=== PATIENT | male | born 1965 | race Caucasian/White ===

== ENCOUNTER 2016-09-11 00:02 | Emergency (ER) | payer OTHER ==
--- NOTE | 2016-09-11 00:55 | ED NURSING NOTES ---
Clinical Report - Nurses [facility] [address] [place] [address] 09/11/2016 0:02 Patient: TRISTAN GENTILE TRIAGE Triage time 1203 AM. Chief Complaint: (CLEAR TO BOOK). Alert. No acute distress. --00:07 Kev Guzman R.N. 00:03 09/11/16. BP: 189/105. HR: 109. RR: 16. O2 saturation: 93%. Temp: 98.6 F (oral). Pain level now: 010. --00:07 Kev Guzman R.N. Weight: 95.2 kg stated. Height/Length: 74 inches Per Patient. BMI: 27. --00:04 Kev Guzman R.N. Medications None. --00:05 Kev Guzman R.N. Allergies No Known Drug Allergy. --00:05 Kev Guzman R.N. History Historian: patient. Arrived in police custody from home and accompanied by police. This started just prior to arrival. ( clear to book, alcohol intoxication). He has had a cough productive of yellow sputum (about 2 weeks). Treatment HRIS MANAGER: None. PAST MEDICAL HX: Immunizations: up-to-date. SOCIAL HX: Never smoker. Heavy alcohol use. History of drug use. (no). FALL RISK ASSESSMENT: Fall risk assessment completed. No fall risk identified. NUTRITIONAL RISK ASSESSMENT: The nutritional risk assessment revealed no deficiencies. FUNCTIONAL ASSESSMENT: Functional assessment: no impairments noted. LEARNING NEEDS ASSESSMENT: The learning needs assessment revealed no barriers. SKIN INTEGRITY ASSESSMENT: Skin integrity risk assessment completed. No skin integrity risk identified. --00:07 Kev Guzman R.N. PROBLEMS: Hypertension. --00:05 Kev Guzman R.N. ADDITIONAL SURGERIES: no known surgeries. Interventions ID band on patient. --00:07 Kev Guzman R.N. PHYSICAL ASSESSMENT Ambulatory to room. GENERAL / NEURO / PSYCH: Alert. Oriented X 4. Appears in no acute distress. HEENT: Pupils equal, round and reactive to light. No facial asymmetry noted. Mucous membranes are pink. RESPIRATORY: Respirations not labored. Chest nontender. Breath sounds within normal limits. CVS: Normal sinus rhythm noted. Capillary refill less than 2 seconds. Pulses within normal limits. GI / : Abdomen soft and nontender and normal bowel sounds. SKIN: Skin intact. Skin is warm and dry. Normal skin turgor. --00:07 Kev Guzman R.N. NURSING PROGRESS NOTES Reassurance given. --00:07 Kev Guzman R.N. Call light placed in reach. Side rails up x 1. --00:36 Kev Guzman R.N. 00:42 09/11/2016 Azithromycin PO 500 mg given. Allergies verified and confirmed 5 rights. --00:42 Kev Guzman R.N. DISPOSITION / DISCHARGE 00:42 09/11/16. BP: 162/91. HR: 100. RR: 16. O2 saturation: 100%. --00:42 Kev Guzman R.N. Departure time: 01:03. Condition at departure: stable. The goals identified in the patient's plan of care were met. No learning barriers present. Discharge instructions provided and reviewed with the patient (Police). Reviewed medication(s) side effects, precautions, dosing and course information. Prescription(s) given to the patient (Tristan verbalizes importance of finishing all prescribed antibiotics.). Reviewed need for increased fluid intake. Activity restrictions (rest) reviewed. Patient verbalized understanding. Written instructions provided in Bengali. Verbalized understanding (Police). ( Tristan verbalizes understanding of all d/c instructions. He has no questions and voices no concerns at this time.). The patient was discharged by the physician. He was discharged home and accompanied by a police escort. He left the Emergency Department ambulatory and via police department vehicle. Driving (police). JAIME COMA SCORE: [place] Coma Scale: 15- eyes open spontaneously (4); best verbal response- oriented x 4 (5); best motor response- obeys commands (6). --01:03 Salvador Williamson R.N. 01:01 09/11/16. BP: 153/98 (regular adult cuff) taken on the left arm, via an automated monitor, while lying. HR: 99 (normal rate). RR: 16 (regular, unlabored and normal). O2 saturation: 96% on room air. Temp: 98.7 F (oral). Pain level now: 0/10. --01:03 Salvador Williamson R.N. Locked/Released at 09/11/2016 1:04 by Salvador Williamson R.N.
--- NOTE | 2016-09-11 00:55 | ED CLINICAL REPORT ---
Clinical Report - Physicians/Mid Levels [facility] [address] [place] [address] 09/11/2016 0:02 Patient: JEREMY GENTILE Time Seen: 00:23; initial patient contact. Arrived- Came in police custody. Historian- patient. HISTORY OF PRESENT ILLNESS Chief Complaint: INTOXICATED. Symptoms started today. Substances abused: Alcohol. Last drink just prior to arrival. He is under influence in ED. No fever, chills, nausea, vomiting or diarrhea. The symptoms are described as moderate. No injuries noted. Similar symptoms previously: Many times. Recent medical care: Not recently seen/assessed. Additional history - The patient has had nasal congestion, a nasal discharge and sore throat and sinus pain. REVIEW OF SYSTEMS No sweats. He has had a sore throat and a headache and cough. All systems otherwise negative, except as recorded above. PAST HISTORY HTN. Additional Surgeries: no known surgeries. Medications: None. Allergies: No Known Drug Allergy. SOCIAL HISTORY Never smoker. Heavy alcohol use. No drug use. ADDITIONAL NOTES The nursing notes have been reviewed with agreement regarding the chief complaint, PMH and patient medications and allergies. PHYSICAL EXAM Vital Signs: 09/11/2016 00:03 BP: 189/105. HR: 109. RR: 16. O2 saturation: 93%. Temp: 98.6 F. Pain level now: 0/10. Have been reviewed. Hypertensive. Tachycardic. Respiratory rate normal. Temperature normal. Oxygen saturation low. Appearance: Alert. Oriented X3. No acute distress. ENT: Tenderness present to percussion/palpation of the sinuses: mild right and left frontal tenderness, ethmoid tenderness. Moderate generalized pharyngeal erythema with right tonsillar swelling and left tonsillar swelling. The mucous membranes are not dry. Neck: No lymphadenopathy. CVS: Normal heart rate and rhythm. Heart sounds normal. Respiratory: No respiratory distress. Breath sounds normal. Abdomen: Soft and nontender. No organomegaly. Skin: Skin warm and dry. Normal skin color. No rash. Normal skin turgor. Extremities: No lower extremity edema. Neuro: Alert. Oriented X 3. Mood/affect normal. Speech normal. PROGRESS AND PROCEDURES Disposition: Discharged home in good condition. Condition: good. CLINICAL IMPRESSION Uncomplicated alcohol intoxication. Acute ethmoidal and frontal sinusitis INSTRUCTIONS (CLEAR TO BOOK). Prescription Medications: Azithromycin 500 mg tablets: take 1 orally every day for 3 days. Total course 3 days. No refills. Flonase nasal spray: 2 sprays to each nostril daily. Dispense one (1) unit. No refills. Substitution is permissible Follow-up: Follow up with your doctor in about two days. Call for an appointment. Screening today revealed the patient's blood pressure to be in the hypertensive range. The patient should follow up with a primary care provider for blood pressure management. (Electronically signed by Karel Lee Dr. 09/11/2016 0:59) Gustavo GENTILE JEREMY VisitID: [id number] Date: 09/11/2016 09/11/2016 1:04 Azithromycin PO Response: no adverse reaction.I personally performed the procedure as documented. (Electronically signed by Salvador Williamson R.N. - 09/11/2016 1:04)
--- NOTE | 2016-09-11 00:55 | ED NURSING NOTES ---
Clinical Report - Nurses [facility] [address] [place] [address] 09/11/2016 0:02 Patient: TRISTAN GENTILE TRIAGE Triage time 1203 AM. Chief Complaint: (CLEAR TO BOOK). Alert. No acute distress. --00:07 Kev Guzman R.N. 00:03 09/11/16. BP: 189/105. HR: 109. RR: 16. O2 saturation: 93%. Temp: 98.6 F (oral). Pain level now: 010. --00:07 Kev Guzman R.N. Weight: 95.2 kg stated. Height/Length: 74 inches Per Patient. BMI: 27. --00:04 Kev Guzman R.N. Medications None. --00:05 Kev Guzman R.N. Allergies No Known Drug Allergy. --00:05 Kev Guzman R.N. History Historian: patient. Arrived in police custody from home and accompanied by police. This started just prior to arrival. ( clear to book, alcohol intoxication). He has had a cough productive of yellow sputum (about 2 weeks). Treatment [employer] [employer]MS: None. PAST MEDICAL HX: Immunizations: up-to-date. SOCIAL HX: Never smoker. Heavy alcohol use. History of drug use. (no). FALL RISK ASSESSMENT: Fall risk assessment completed. No fall risk identified. NUTRITIONAL RISK ASSESSMENT: The nutritional risk assessment revealed no deficiencies. FUNCTIONAL ASSESSMENT: Functional assessment: no impairments noted. LEARNING NEEDS ASSESSMENT: The learning needs assessment revealed no barriers. SKIN INTEGRITY ASSESSMENT: Skin integrity risk assessment completed. No skin integrity risk identified. --00:07 Kev Guzman R.N. PROBLEMS: Hypertension. --00:05 Kev Guzman R.N. ADDITIONAL SURGERIES: no known surgeries. Interventions ID band on patient. --00:07 Kev Guzman R.N. PHYSICAL ASSESSMENT Ambulatory to room. GENERAL / NEURO / PSYCH: Alert. Oriented X 4. Appears in no acute distress. HEENT: Pupils equal, round and reactive to light. No facial asymmetry noted. Mucous membranes are pink. RESPIRATORY: Respirations not labored. Chest nontender. Breath sounds within normal limits. CVS: Normal sinus rhythm noted. Capillary refill less than 2 seconds. Pulses within normal limits. GI / : Abdomen soft and nontender and normal bowel sounds. SKIN: Skin intact. Skin is warm and dry. Normal skin turgor. --00:07 Kev Guzman R.N. NURSING PROGRESS NOTES Reassurance given. --00:07 Kev Guzman R.N. Call light placed in reach. Side rails up x 1. --00:36 Kev Guzman R.N. 00:42 09/11/2016 Azithromycin PO 500 mg given. Allergies verified and confirmed 5 rights. --00:42 Kev Guzman R.N. DISPOSITION / DISCHARGE 00:42 09/11/16. BP: 162/91. HR: 100. RR: 16. O2 saturation: 100%. --00:42 Kev Guzman R.N. Departure time: 01:03. Condition at departure: stable. The goals identified in the patient's plan of care were met. No learning barriers present. Discharge instructions provided and reviewed with the patient (Police). Reviewed medication(s) side effects, precautions, dosing and course information. Prescription(s) given to the patient (Tristan verbalizes importance of finishing all prescribed antibiotics.). Reviewed need for increased fluid intake. Activity restrictions (rest) reviewed. Patient verbalized understanding. Written instructions provided in German. Verbalized understanding (Police). ( Tristan verbalizes understanding of all d/c instructions. He has no questions and voices no concerns at this time.). The patient was discharged by the physician. He was discharged home and accompanied by a police escort. He left the Emergency Department ambulatory and via police department vehicle. Driving (police). JAIME COMA SCORE: [place] Coma Scale: 15- eyes open spontaneously (4); best verbal response- oriented x 4 (5); best motor response- obeys commands (6). --01:03 Salvador Williamson R.N. 01:01 09/11/16. BP: 153/98 (regular adult cuff) taken on the left arm, via an automated monitor, while lying. HR: 99 (normal rate). RR: 16 (regular, unlabored and normal). O2 saturation: 96% on room air. Temp: 98.7 F (oral). Pain level now: 0/10. --01:03 Salvador Williamson R.N. Locked/Released at 09/11/2016 1:04 by Salvador Williamson R.N.
--- NOTE | 2016-09-11 00:55 | ED CLINICAL REPORT ---
Clinical Report - Physicians/Mid Levels [facility] [address] [place] [address] 09/11/2016 0:02 Patient: JEREMY GENTILE Time Seen: 00:23; initial patient contact. Arrived- Came in police custody. Historian- patient. HISTORY OF PRESENT ILLNESS Chief Complaint: INTOXICATED. Symptoms started today. Substances abused: Alcohol. Last drink just prior to arrival. He is under influence in ED. No fever, chills, nausea, vomiting or diarrhea. The symptoms are described as moderate. No injuries noted. Similar symptoms previously: Many times. Recent medical care: Not recently seen/assessed. Additional history - The patient has had nasal congestion, a nasal discharge and sore throat and sinus pain. REVIEW OF SYSTEMS No sweats. He has had a sore throat and a headache and cough. All systems otherwise negative, except as recorded above. PAST HISTORY HTN. Additional Surgeries: no known surgeries. Medications: None. Allergies: No Known Drug Allergy. SOCIAL HISTORY Never smoker. Heavy alcohol use. No drug use. ADDITIONAL NOTES The nursing notes have been reviewed with agreement regarding the chief complaint, PMH and patient medications and allergies. PHYSICAL EXAM Vital Signs: 09/11/2016 00:03 BP: 189/105. HR: 109. RR: 16. O2 saturation: 93%. Temp: 98.6 F. Pain level now: 0/10. Have been reviewed. Hypertensive. Tachycardic. Respiratory rate normal. Temperature normal. Oxygen saturation low. Appearance: Alert. Oriented X3. No acute distress. ENT: Tenderness present to percussion/palpation of the sinuses: mild right and left frontal tenderness, ethmoid tenderness. Moderate generalized pharyngeal erythema with right tonsillar swelling and left tonsillar swelling. The mucous membranes are not dry. Neck: No lymphadenopathy. CVS: Normal heart rate and rhythm. Heart sounds normal. Respiratory: No respiratory distress. Breath sounds normal. Abdomen: Soft and nontender. No organomegaly. Skin: Skin warm and dry. Normal skin color. No rash. Normal skin turgor. Extremities: No lower extremity edema. Neuro: Alert. Oriented X 3. Mood/affect normal. Speech normal. PROGRESS AND PROCEDURES Disposition: Discharged home in good condition. Condition: good. CLINICAL IMPRESSION Uncomplicated alcohol intoxication. Acute ethmoidal and frontal sinusitis INSTRUCTIONS (CLEAR TO BOOK). Prescription Medications: Azithromycin 500 mg tablets: take 1 orally every day for 3 days. Total course 3 days. No refills. Flonase nasal spray: 2 sprays to each nostril daily. Dispense one (1) unit. No refills. Substitution is permissible Follow-up: Follow up with your doctor in about two days. Call for an appointment. Screening today revealed the patient's blood pressure to be in the hypertensive range. The patient should follow up with a primary care provider for blood pressure management. (Electronically signed by Karel Lee Dr. 09/11/2016 0:59) Gustavo GENTILE JEREMY VisitID: [id number] Date: 09/11/2016 09/11/2016 1:04 Azithromycin PO Response: no adverse reaction.I personally performed the procedure as documented. (Electronically signed by Salvador Williamson R.N. - 09/11/2016 1:04)
--- NOTE | 2016-09-11 00:55 | ED ORDER SUMMARY ---
..... Patient: JEREMY GENTILE OrderSheet [facility] VisitID: [id number] [address] [place] [address] 51y, M Registration Date/Time: 09/11/2016 ORDER SHEET Weight: 95.2 kg (stated) Allergies: No Known Drug Allergy GENERAL ORDERS: MEDICATION ORDERS: Azithromycin PO 500 mg (NOW) (00:37 09/11/2016 Josemanuel Bird) (0:42 Asha Nair) IV FLUIDS: ORDER SHEET NOTES: [Electronically signed by Karel Lee Dr. (00:59 09/11/2016)] [Electronically signed by Salvador Williamson R.N. (01:04 09/11/2016)] [Electronically locked/signed by Salvador Williamson R.N. (01:04 09/11/2016)]
--- NOTE | 2016-09-11 00:55 | ED ORDER SUMMARY ---
..... Patient: JEREMY GENTILE OrderSheet [facility] VisitID: [id number] [address] [place] [address] 51y, M Registration Date/Time: 09/11/2016 ORDER SHEET Weight: 95.2 kg (stated) Allergies: No Known Drug Allergy GENERAL ORDERS: MEDICATION ORDERS: Azithromycin PO 500 mg (NOW) (00:37 09/11/2016 Josemanuel Bird) (0:42 Asha Nair) IV FLUIDS: ORDER SHEET NOTES: [Electronically signed by Karel Lee Dr. (00:59 09/11/2016)] [Electronically signed by Salvador Williamson R.N. (01:04 09/11/2016)] [Electronically locked/signed by Salvador Williamson R.N. (01:04 09/11/2016)]
--- NOTE | 2016-09-11 01:05 | ED DISCHARGE INSTRUCTIONS ---
Patient: JEREMY GENTILE General Instructions [facility] VisitID: [id number] [place] [address] 51y, M Registration Date/Time: 09/11/2016 Uncomplicated alcohol intoxication. Acute ethmoidal and frontal sinusitis INSTRUCTIONS (CLEAR TO BOOK). Prescription Medications: Azithromycin 500 mg tablets: take 1 orally every day for 3 days. Total course 3 days. No refills. Flonase nasal spray: 2 sprays to each nostril daily. Dispense one (1) unit. No refills. Substitution is permissible Follow-up: Follow up with your doctor in about two days. Call for an appointment. Screening today revealed the patient's blood pressure to be in the hypertensive range. The patient should follow up with a primary care provider for blood pressure management. ADDITIONAL INFORMATION Alcohol Intoxication Alcohol intoxication occurs when you drink alcohol faster than your liver can remove it from your system. Alcohol intoxication affects your judgment and coordination. Very high blood alcohol levels can cause coma, very slow breathing and even . If you drink alcohol every day, this may gradually cause permanent damage to your liver, brain, heart, pancreas and other organs. Alcohol use during may cause permanent damage to the growing baby. Home Care: Do not drink any more alcohol. DO NOT DRIVE until all effects of the alcohol have worn off. Get lots of rest over the next few days. Drink plenty of water and other non-alcoholic liquids. Try to eat regular meals. If you have been drinking heavily on a daily basis, you may go through alcohol withdrawl. This is also called the shakes or DTs. The usual symptoms last 3 to 4 days and may include nervousness, shakiness, nausea, sweating or sleeplessness. During this time, it is best that you stay with family or friends who can help and support you. You can also admit yourself to a residential detox program. If your symptoms are severe, contact your doctor for medicines to help. Follow Up: If alcohol is causing a problem in your life, these and other organizations can help you: Alcoholics Anonymous offers support through a self-help fellowship. There are no dues or fees. See the Yellow Pages and call for time and place of meetings. www.aa.org [employer] offers support to families of alcohol users. 791.833.5367 www.al-anon.org [employer] 964-280-7630 www.ncadd.org There are also inpatient or residential alcohol detox programs. Check the Internet or phonebook Yellow Pages under Drug Abuse & Treatment Centers. Get Prompt Medical Attention if any of the following occur: there) Sinusitis [Abx Tx] The sinuses are air-filled spaces within the bones of the face. They connect to the inside of the nose. Sinusitis is an inflammation of the tissue lining the sinus cavity. Sinus inflammation can occur during a cold or hay-fever (allergies to pollens and other particles in the air) and cause symptoms of sinus congestion and fullness. A sinus infection causes fever, headache and facial pain. There is usually green or yellow drainage from the nose or into the back of the throat (post-nasal drip). Antibiotics are prescribed to treat this condition. Home Care: Drink plenty of water, hot tea, and other liquids to stay well hydrated. This thins the mucus and promotes sinus drainage. Apply heat to the painful areas of the face. Use a towel soaked in hot water. Or, clinical technician the shower and direct the hot spray onto your face. This is a good way to inhale warm water vapor and get heat on your face at the same time. (Cover your mouth and nose with your hands so you can still breathe as you do this.) Use a vaporizer with products such as Vicks VapoRub (contains menthol) at night. Suck on peppermint, menthol or eucalyptus hard candies during the day. An expectorant containing guaifenesin (such as Robitussin), helps to thin the mucus and promote drainage from the sinuses. [id number]-hdo-[id number] decongestants may be used unless a similar medicine was prescribed. Nasal sprays work the fastest. Use one that contains phenylephrine (Marlon-synephrine, Sinex and others) or oxymetazoline (Afrin). First blow the nose gently to remove mucus, then apply the drops. Do not use these medicines more often than directed on the label or for more than three days or symptoms may worsen. You may also use tablets containing pseudoephedrine (Sudafed). Many sinus remedies combine ingredients, which may increase side effects. Read the labels or ask the pharmacist for help. NOTE: Persons with high blood pressure should not use decongestants. They can raise blood pressure. Antihistamines are useful if allergies are a cause of your sinusitis. The mildest one is chlorpheniramine (available without a prescription). The dose for adults is 8-12mg three times a day. [NOTE: Do not use chlorpheniramine if you have glaucoma or if you are a man with trouble urinating due to an enlarged prostate.] Claritin (loratidine) is an antihistamine that causes less drowsiness and is a good alternative for daytime use. Do not use nasal rinses or irrigation during an acute sinus infection, unless advised by your doctor. Rinsing may spread the infection to other sinuses. You may use acetaminophen (Tylenol) or ibuprofen (Motrin, Advil) to control pain, unless another pain medicine was prescribed. [ NOTE: If you have chronic liver or kidney disease or ever had a stomach ulcer, talk with your doctor before using these medicines.] (Aspirin should never be used in anyone under 18 years of age who is ill with a fever. It may cause severe liver damage.) Finish the full course, even if you are feeling better after a few days. Follow Up with your doctor or this facility in one week or as instructed by our staff if not improving. Get Prompt Medical Attention if any of the following occur: Facial pain or headache becomes more severe Stiff neck Unusual drowsiness or confusion, or not acting like your normal self Swelling of the forehead or eyelids Vision problems including blurred or double vision Fever of 100.4F (38C) or higher, or as directed by your healthcare provider Seizure Azithromycin Oral tablet What is this medicine? AZITHROMYCIN (az ith alondra MYE sin) is a macrolide antibiotic. It is used to treat or prevent certain kinds of bacterial infections. It will not work for colds, flu, or other viral infections. How should I use this medicine? Take this medicine by mouth with a full glass of water. Follow the directions on the prescription label. The tablets can be taken with food or on an empty stomach. If the medicine upsets your stomach, take it with food. Take your medicine at regular intervals. Do not take your medicine more often than directed. Take all of your medicine as directed even if you think your are better. Do not skip doses or stop your medicine early. Talk to your hedge fund trader regarding the use of this medicine in children. Special care may be needed. What side effects may I notice from receiving this medicine? Side effects that you should report to your doctor or health medicare biller as soon as possible: allergic reactions like skin rash, itching or hives, swelling of the face, lips, or tongue confusion, nightmares or hallucinations dark urine difficulty breathing hearing loss irregular heartbeat or chest pain pain or difficulty passing urine redness, blistering, peeling or loosening of the skin, including inside the mouth white patches or sores in the mouth yellowing of the eyes or skin Side effects that usually do not require medical attention (report to your doctor or health medicare biller if they continue or are bothersome): diarrhea dizziness, drowsiness headache stomach upset or vomiting tooth discoloration vaginal irritation What may interact with this medicine? Do not take this medicine with any of the following medications: lincomycin This medicine may also interact with the following medications: amiodarone antacids cyclosporine digoxin magnesium nelfinavir phenytoin warfarin What if I miss a dose? If you miss a dose, take it as soon as you can. If it is almost time for your next dose, take only that dose. Do not take double or extra doses. Where should I keep my medicine? Keep out of the reach of children. Store at room temperature between 15 and 30 degrees C (59 and 86 degrees F). Throw away any unused medicine after the expiration date. What should I tell my health care provider before I take this medicine? They need to know if you have any of these conditions: kidney disease liver disease irregular heartbeat or heart disease an unusual or allergic reaction to azithromycin, erythromycin, other macrolide antibiotics, foods, dyes, or preservatives or trying to get breast-feeding What should I watch for while using this medicine? Tell your doctor or health medicare biller if your symptoms do not improve. Do not treat diarrhea with over the counter products. Contact your doctor if you have diarrhea that lasts more than 2 days or if it is severe and watery. This medicine can make you more sensitive to the sun. Keep out of the sun. If you cannot avoid being in the sun, wear protective clothing and use sunscreen. Do not use sun lamps or tanning beds/booths. Fluticasone Propionate Nasal spray, solution What is this medicine? FLUTICASONE (floo TIK a sone) is a corticosteroid. It helps decrease inflammation in your nose. This medicine is used to treat the symptoms of allergies like sneezing, itching, and runny or stuffy nose. How should I use this medicine? This medicine is for use in the nose. Follow the directions on your prescription label. This medicine works best if used regularly. Do not use more often than directed. Make sure that you are using your nasal spray correctly. Ask you doctor or health care provider if you have any questions. Talk to your hedge fund trader regarding the use of this medicine in children. While this drug may be prescribed for children as young as 4 years old for selected conditions, precautions do apply. What side effects may I notice from receiving this medicine? Side effects that you should report to your doctor or health medicare biller as soon as possible: allergic reactions like skin rash, itching or hives, swelling of the face, lips, or tongue changes in vision flu-like symptoms white patches or sores in the mouth or nose Side effects that usually do not require medical attention (report to your doctor or health medicare biller if they continue or are bothersome): burning or irritation inside the nose or throat cough headache nosebleed unusual taste or smell What may interact with this medicine? ketoconazole metyrapone some medicines for HIV vaccines What if I miss a dose? If you miss a dose, use it as soon as you remember. If it is almost time for your next dose, use only that dose and continue with your regular schedule. Do not use double or extra doses. Where should I keep my medicine? Keep out of the reach of children. Store at room temperature between 15 and 30 degrees C (59 and 86 degrees F). Throw away any unused medicine after the expiration date. What should I tell my health care provider before I take this medicine? They need to know if you have any of these conditions: infection, like tuberculosis, herpes, or fungal infection recent surgery on nose or sinuses taking corticosteroid by mouth an unusual or allergic reaction to fluticasone, steroids, other medicines, foods, dyes, or preservatives or trying to get breast-feeding What should I watch for while using this medicine? Visit your doctor or health medicare biller for regular checks on your progress. Some symptoms may improve within 12 hours after starting use. Check with your doctor or health medicare biller if there is no improvement in your condition after 3 weeks of use. Do not come in contact with people who have chickenpox or the measles while you are taking this medicine. If you do, call your doctor right away. You have been given the following additional information: Alcohol Intoxication Sinusitis, Abx Tx Azithromycin Oral tablet Fluticasone Propionate Nasal spray, solution (Electronically signed by Karel Lee Dr. 09/11/2016 0:59)
--- NOTE | 2016-09-11 01:05 | ED MAR SUMMARY ---
..... Medication Administration Record [facility] [address] [place] [address] Patient: JEREMY GENTILE Visit ID: [id number] 51y, M Weight: 95.2 kg Height/Length: 74 in BMI: 27 ALLERGIES: No Known Drug Allergy Given 00:42 09/11/2016 Kev Guzman R.N. Medication Administered: AZITHROMYCIN [PO], Dose: 500 mg PO. Medication Ordered: Azithromycin PO 500 mg (NOW).
--- NOTE | 2016-09-11 01:05 | ED MAR SUMMARY ---
..... Medication Administration Record [facility] [address] [place] [address] Patient: JEREMY GENTILE Visit ID: [id number] 51y, M Weight: 95.2 kg Height/Length: 74 in BMI: 27 ALLERGIES: No Known Drug Allergy Given 00:42 09/11/2016 Kev Guzman R.N. Medication Administered: AZITHROMYCIN [PO], Dose: 500 mg PO. Medication Ordered: Azithromycin PO 500 mg (NOW).
--- NOTE | 2016-09-11 01:05 | ED DISCHARGE INSTRUCTIONS ---
Patient: JEREMY GENTILE General Instructions [facility] VisitID: [id number] [place] [address] 51y, M Registration Date/Time: 09/11/2016 Uncomplicated alcohol intoxication. Acute ethmoidal and frontal sinusitis INSTRUCTIONS (CLEAR TO BOOK). Prescription Medications: Azithromycin 500 mg tablets: take 1 orally every day for 3 days. Total course 3 days. No refills. Flonase nasal spray: 2 sprays to each nostril daily. Dispense one (1) unit. No refills. Substitution is permissible Follow-up: Follow up with your doctor in about two days. Call for an appointment. Screening today revealed the patient's blood pressure to be in the hypertensive range. The patient should follow up with a primary care provider for blood pressure management. ADDITIONAL INFORMATION Alcohol Intoxication Alcohol intoxication occurs when you drink alcohol faster than your liver can remove it from your system. Alcohol intoxication affects your judgment and coordination. Very high blood alcohol levels can cause coma, very slow breathing and even . If you drink alcohol every day, this may gradually cause permanent damage to your liver, brain, heart, pancreas and other organs. Alcohol use during may cause permanent damage to the growing baby. Home Care: Do not drink any more alcohol. DO NOT DRIVE until all effects of the alcohol have worn off. Get lots of rest over the next few days. Drink plenty of water and other non-alcoholic liquids. Try to eat regular meals. If you have been drinking heavily on a daily basis, you may go through alcohol withdrawl. This is also called the shakes or DTs. The usual symptoms last 3 to 4 days and may include nervousness, shakiness, nausea, sweating or sleeplessness. During this time, it is best that you stay with family or friends who can help and support you. You can also admit yourself to a residential detox program. If your symptoms are severe, contact your doctor for medicines to help. Follow Up: If alcohol is causing a problem in your life, these and other organizations can help you: Alcoholics Anonymous offers support through a self-help fellowship. There are no dues or fees. See the Yellow Pages and call for time and place of meetings. www.aa.org [employer] offers support to families of alcohol users. 433.686.7167 www.al-anon.org [employer] [place] [employer] Alcoholism And Drug Dependence 972-247-6978 www.ncadd.org There are also inpatient or residential alcohol detox programs. Check the Internet or phonebook Yellow Pages under Drug Abuse & Treatment Centers. Get Prompt Medical Attention if any of the following occur: there) Sinusitis [Abx Tx] The sinuses are air-filled spaces within the bones of the face. They connect to the inside of the nose. Sinusitis is an inflammation of the tissue lining the sinus cavity. Sinus inflammation can occur during a cold or hay-fever (allergies to pollens and other particles in the air) and cause symptoms of sinus congestion and fullness. A sinus infection causes fever, headache and facial pain. There is usually green or yellow drainage from the nose or into the back of the throat (post-nasal drip). Antibiotics are prescribed to treat this condition. Home Care: Drink plenty of water, hot tea, and other liquids to stay well hydrated. This thins the mucus and promotes sinus drainage. Apply heat to the painful areas of the face. Use a towel soaked in hot water. Or, targeting acquisition officer the shower and direct the hot spray onto your face. This is a good way to inhale warm water vapor and get heat on your face at the same time. (Cover your mouth and nose with your hands so you can still breathe as you do this.) Use a vaporizer with products such as Vicks VapoRub (contains menthol) at night. Suck on peppermint, menthol or eucalyptus hard candies during the day. An expectorant containing guaifenesin (such as Robitussin), helps to thin the mucus and promote drainage from the sinuses. Xxko-lbe-ocuvgzy decongestants may be used unless a similar medicine was prescribed. Nasal sprays work the fastest. Use one that contains phenylephrine (Marlon-synephrine, Sinex and others) or oxymetazoline (Afrin). First blow the nose gently to remove mucus, then apply the drops. Do not use these medicines more often than directed on the label or for more than three days or symptoms may worsen. You may also use tablets containing pseudoephedrine (Sudafed). Many sinus remedies combine ingredients, which may increase side effects. Read the labels or ask the pharmacist for help. NOTE: Persons with high blood pressure should not use decongestants. They can raise blood pressure. Antihistamines are useful if allergies are a cause of your sinusitis. The mildest one is chlorpheniramine (available without a prescription). The dose for adults is 8-12mg three times a day. [NOTE: Do not use chlorpheniramine if you have glaucoma or if you are a man with trouble urinating due to an enlarged prostate.] Claritin (loratidine) is an antihistamine that causes less drowsiness and is a good alternative for daytime use. Do not use nasal rinses or irrigation during an acute sinus infection, unless advised by your doctor. Rinsing may spread the infection to other sinuses. You may use acetaminophen (Tylenol) or ibuprofen (Motrin, Advil) to control pain, unless another pain medicine was prescribed. [ NOTE: If you have chronic liver or kidney disease or ever had a stomach ulcer, talk with your doctor before using these medicines.] (Aspirin should never be used in anyone under 18 years of age who is ill with a fever. It may cause severe liver damage.) Finish the full course, even if you are feeling better after a few days. Follow Up with your doctor or this facility in one week or as instructed by our staff if not improving. Get Prompt Medical Attention if any of the following occur: Facial pain or headache becomes more severe Stiff neck Unusual drowsiness or confusion, or not acting like your normal self Swelling of the forehead or eyelids Vision problems including blurred or double vision Fever of 100.4F (38C) or higher, or as directed by your healthcare provider Seizure Azithromycin Oral tablet What is this medicine? AZITHROMYCIN (az ith alondra MYE sin) is a macrolide antibiotic. It is used to treat or prevent certain kinds of bacterial infections. It will not work for colds, flu, or other viral infections. How should I use this medicine? Take this medicine by mouth with a full glass of water. Follow the directions on the prescription label. The tablets can be taken with food or on an empty stomach. If the medicine upsets your stomach, take it with food. Take your medicine at regular intervals. Do not take your medicine more often than directed. Take all of your medicine as directed even if you think your are better. Do not skip doses or stop your medicine early. Talk to your steffen house supervisor regarding the use of this medicine in children. Special care may be needed. What side effects may I notice from receiving this medicine? Side effects that you should report to your doctor or health cna caregiver as soon as possible: allergic reactions like skin rash, itching or hives, swelling of the face, lips, or tongue confusion, nightmares or hallucinations dark urine difficulty breathing hearing loss irregular heartbeat or chest pain pain or difficulty passing urine redness, blistering, peeling or loosening of the skin, including inside the mouth white patches or sores in the mouth yellowing of the eyes or skin Side effects that usually do not require medical attention (report to your doctor or health cna caregiver if they continue or are bothersome): diarrhea dizziness, drowsiness headache stomach upset or vomiting tooth discoloration vaginal irritation What may interact with this medicine? Do not take this medicine with any of the following medications: lincomycin This medicine may also interact with the following medications: amiodarone antacids cyclosporine digoxin magnesium nelfinavir phenytoin warfarin What if I miss a dose? If you miss a dose, take it as soon as you can. If it is almost time for your next dose, take only that dose. Do not take double or extra doses. Where should I keep my medicine? Keep out of the reach of children. Store at room temperature between 15 and 30 degrees C (59 and 86 degrees F). Throw away any unused medicine after the expiration date. What should I tell my health care provider before I take this medicine? They need to know if you have any of these conditions: kidney disease liver disease irregular heartbeat or heart disease an unusual or allergic reaction to azithromycin, erythromycin, other macrolide antibiotics, foods, dyes, or preservatives or trying to get breast-feeding What should I watch for while using this medicine? Tell your doctor or health cna caregiver if your symptoms do not improve. Do not treat diarrhea with over the counter products. Contact your doctor if you have diarrhea that lasts more than 2 days or if it is severe and watery. This medicine can make you more sensitive to the sun. Keep out of the sun. If you cannot avoid being in the sun, wear protective clothing and use sunscreen. Do not use sun lamps or tanning beds/booths. Fluticasone Propionate Nasal spray, solution What is this medicine? FLUTICASONE (floo TIK a sone) is a corticosteroid. It helps decrease inflammation in your nose. This medicine is used to treat the symptoms of allergies like sneezing, itching, and runny or stuffy nose. How should I use this medicine? This medicine is for use in the nose. Follow the directions on your prescription label. This medicine works best if used regularly. Do not use more often than directed. Make sure that you are using your nasal spray correctly. Ask you doctor or health care provider if you have any questions. Talk to your steffen house supervisor regarding the use of this medicine in children. While this drug may be prescribed for children as young as 4 years old for selected conditions, precautions do apply. What side effects may I notice from receiving this medicine? Side effects that you should report to your doctor or health cna caregiver as soon as possible: allergic reactions like skin rash, itching or hives, swelling of the face, lips, or tongue changes in vision flu-like symptoms white patches or sores in the mouth or nose Side effects that usually do not require medical attention (report to your doctor or health cna caregiver if they continue or are bothersome): burning or irritation inside the nose or throat cough headache nosebleed unusual taste or smell What may interact with this medicine? ketoconazole metyrapone some medicines for HIV vaccines What if I miss a dose? If you miss a dose, use it as soon as you remember. If it is almost time for your next dose, use only that dose and continue with your regular schedule. Do not use double or extra doses. Where should I keep my medicine? Keep out of the reach of children. Store at room temperature between 15 and 30 degrees C (59 and 86 degrees F). Throw away any unused medicine after the expiration date. What should I tell my health care provider before I take this medicine? They need to know if you have any of these conditions: infection, like tuberculosis, herpes, or fungal infection recent surgery on nose or sinuses taking corticosteroid by mouth an unusual or allergic reaction to fluticasone, steroids, other medicines, foods, dyes, or preservatives or trying to get breast-feeding What should I watch for while using this medicine? Visit your doctor or health cna caregiver for regular checks on your progress. Some symptoms may improve within 12 hours after starting use. Check with your doctor or health cna caregiver if there is no improvement in your condition after 3 weeks of use. Do not come in contact with people who have chickenpox or the measles while you are taking this medicine. If you do, call your doctor right away. You have been given the following additional information: Alcohol Intoxication Sinusitis, Abx Tx Azithromycin Oral tablet Fluticasone Propionate Nasal spray, solution (Electronically signed by Karel Lee Dr. 09/11/2016 0:59)
--- NOTE | 2016-09-11 01:05 | ED MED RECONCILIATION SUMMARY ---
Patient: JEREMY GENTILE Medication Reconciliation Report [facility] VisitID: [id number] [address] [place] [address] 51y, M Registration Date/Time: 09/11/2016 Weight: 95.2 kg Height/Length: 74 in. BMI: 27.0 ALLERGIES: No Known Drug Allergy The patient's Home Medications are listed below: NONE. The source(s) of the original Home Medication information: Not obtained. The following Medications were given to the patient in the Emergency Department: Azithromycin [PO] PO 500 mg, administered: 09/11/2016 12:42:00 AM The following Medications were prescribed to the patient: Azithromycin 500 mg tablets: take 1 orally every day for 3 days. Total course 3 days. No refills. -- Karel Lee Dr. Flocarli nasal spray: 2 sprays to each nostril daily. Dispense one (1) unit. No refills. Substitution is permissible -- Karel Lee Dr.
--- NOTE | 2016-09-11 01:05 | ED MED RECONCILIATION SUMMARY ---
Patient: JEREMY GENTILE Medication Reconciliation Report [facility] VisitID: [id number] [address] [place] [address] 51y, M Registration Date/Time: 09/11/2016 Weight: 95.2 kg Height/Length: 74 in. BMI: 27.0 ALLERGIES: No Known Drug Allergy The patient's Home Medications are listed below: NONE. The source(s) of the original Home Medication information: Not obtained. The following Medications were given to the patient in the Emergency Department: Azithromycin [PO] PO 500 mg, administered: 09/11/2016 12:42:00 AM The following Medications were prescribed to the patient: Azithromycin 500 mg tablets: take 1 orally every day for 3 days. Total course 3 days. No refills. -- Karel Lee Dr. Flocarli nasal spray: 2 sprays to each nostril daily. Dispense one (1) unit. No refills. Substitution is permissible -- Karel Lee Dr.
== END 2016-09-11 01:03 | disposition home or self-care (01) ==
LOC: ED SRH 00:02
DX: F10.120 Alcohol abuse with intoxication, uncomplicated (principal); J01.10 Acute frontal sinusitis, unspecified; J01.20 Acute ethmoidal sinusitis, unspecified; I10 Essential (primary) hypertension